=== PATIENT | male | born 1940 | race Caucasian/White ===

== ENCOUNTER 2023-09-02 10:28 | Outpatient (CLI) | payer MEDICARE ==
[2023-09-02 12:39] LABS: Hematocrit 41.2 % (38.8-50.0); Hemoglobin 13.6 g/dL (13.5-17.5); Mean Corpuscular Hemoglobin 31.5 pg (27.0-33.0); Mean Corpuscular Volume 95.4 fl (81.2-95.1); Mean Platelet Volume 10.2 fl (7.4-10.4); Platelet Count 152 10x3/uL (150-450); RBC Distribution Width 13.9 % (11.5-14.5); Red Blood Cell (RBC) Count 4.32 10x6/uL (4.32-5.72)
[2023-09-02 12:40] LABS: PTT 29.4 sec (22.0-33.0); Prothrombin Time 10.3 sec (9.5-12.1)
[2023-09-02 12:53] LABS: Anion Gap 14 mmol/L (10-20); BUN (Urea Nitrogen) 28 mg/dL (8.4-25.7); Calc. Creatinine Clearance 0 mL/min (70-130); Calcium 8.8 mg/dL (7.8-10.44); Carbon Dioxide 28 mmol/L (23-31); Chloride 102 mmol/L (98-107); Estimated GFR 58; Glucose 80 mg/dL (83-110); Potassium 3.7 mmol/L (3.5-5.1); Sodium 140 mmol/L (136-145)
== END 2023-09-02 10:29 | disposition home or self-care (01) ==
LOC: LABBT 10:28
PROVIDERS: ATTEND Urology
DX: Z01.812 Encounter for preprocedural laboratory examination (principal); N32.0 Bladder-neck obstruction
CPT/HCPCS: 80048; 85027; 85610; 85730; 87086

== ENCOUNTER 2023-09-08 11:13 | Inpatient (IN) | payer MEDICARE ==
[2023-09-02 11:04] VITALS: BMI 25.8
[2023-09-08] MEDS ORDERED: LevoFLOXacin D5W 500 mg (100 mL) BAG ONE (13:38)
[2023-09-08] MEDS ORDERED: Phenylephrine 10 MG/ML VIAL ONE (14:40)
[2023-09-08] MEDS ORDERED: PROPOFOL 20 ML ONE (14:43)
[2023-09-08] MEDS ORDERED: fentaNYL PF 100 MCG/2 ML SYRINGE ONE (14:43)
[2023-09-08] MEDS ORDERED: Rocuronium Bromide 10 MG/ML (10ML VIAL) ONE (14:50)
[2023-09-08] MEDS ORDERED: Lidocaine 1% PF 5 ML VIAL ONE (14:50)
[2023-09-08] MEDS ORDERED: Ondansetron PF 4 MG/2 ML Vial ONE (14:50)
[2023-09-08] MEDS ORDERED: ePHEDrine Sulfate 50 MG/10 ML VIAL ONE (15:00)
[2023-09-08] MEDS ORDERED: Dexamethasone 20 MG/5 ML VIAL ONE (15:14)
[2023-09-08] MEDS ORDERED: Promethazine HCl 25 MG/ML VIAL IM PRN (15:44)
[2023-09-08] MEDS ORDERED: Morphine Sulfate 2 MG/ML SYRINGE SLOW IVP PRN (15:44)
[2023-09-08] MEDS ORDERED: Ondansetron HCl/PF 4 MG/2 ML Vial IVP PRN (15:44)
[2023-09-08] MEDS ORDERED: HYDROmorphone 2 MG/ML VIAL SLOW IVP PRN (15:44)
[2023-09-08] MEDS ORDERED: PACU-Morphine 4MG/ML VIAL SLOW IVP PRN (15:44)
[2023-09-08] MEDS ORDERED: NEOSTIGMINE 3 MG/3 ML SYR 3 MG/3 ML SYRINGE ONE (16:21)
[2023-09-08] MEDS ORDERED: Glycopyrrolate 0.2 MG/ML 5 ML SYRINGE ONE (16:21)
[2023-09-08] MEDS ORDERED: Hyoscyamine SL 0.125 MG TAB SL PRN (16:40)
[2023-09-08] MEDS ORDERED: Acetaminophen 500 MG TAB PO PRN (16:40)
[2023-09-08] MEDS ORDERED: Furosemide 20 MG TAB PO PRN (16:43)
[2023-09-08] MEDS: LevoFLOXacin 500 mg/D5W 500 MG in Premix 1 BAG IVPB SCH (18:26)
[2023-09-08] MEDS: D5 1/2 NS w/20 mEq KCL 1,000 ML IV SCH (18:30)
[2023-09-08] MEDS: Ipratropium/Albuterol 3 ML NEB NEB SCH (18:59)
[2023-09-08] MEDS: Mometasone 100 MCG HFA INHALER (RT USE) INH SCH (19:02)
[2023-09-08] MEDS: Gabapentin 300 MG CAP PO SCH (20:38)
[2023-09-08] MEDS: Famotidine 20 MG TAB PO SCH (20:38)
[2023-09-08] MEDS: Atorvastatin Calcium 10 MG TAB PO SCH (20:38)
[2023-09-08] MEDS: Pramipexole Di-HCl 1 MG TAB PO SCH (20:38)
[2023-09-08] MEDS: Finasteride 5 MG TAB PO SCH (20:38)
[2023-09-08] MEDS: Docusate 100 MG CAP PO SCH (20:40)
[2023-09-08] MEDS ORDERED: Acetaminophen 325 MG TAB PO PRN (22:20)
[2023-09-08] MEDS ORDERED: Ondansetron ODT 4 MG TAB PO PRN (22:20)
[2023-09-08] MEDS ORDERED: Acetaminophen 650 MG Suppository PR PRN (22:20)
[2023-09-08] MEDS ORDERED: Ondansetron PF 4 MG/2 ML Vial IVP PRN (22:20)
[2023-09-08 23:22] LABS: ALT (SGPT) 17 U/L (8-55); AST (SGOT) 22 U/L (5-34); Albumin 3.6 g/dL (3.4-4.8); Alkaline Phosphatase 86 U/L (40-110); Anion Gap 9 mmol/L (10-20); BUN (Urea Nitrogen) 24 mg/dL (8.4-25.7); Bilirubin, Total 0.6 mg/dL (0.2-1.2); Calc. Creatinine Clearance 55 mL/min (70-130); Calcium 8.5 mg/dL (7.8-10.44); Carbon Dioxide 27 mmol/L (23-31); Chloride 103 mmol/L (98-107); Estimated GFR 67; Globulin 2.3 g/dL (2.4-3.5); Glucose 271 mg/dL (83-110); Magnesium 1.7 mg/dL (1.6-2.6); Protein, Total 5.9 g/dL (5.8-8.1); Sodium 135 mmol/L (136-145)
[2023-09-08 23:30] LABS: Troponin I Less than 0.010 ng/mL (< 0.028)
[2023-09-09 04:19] LABS: #Monocytes 0.2 thou/uL (0.11-0.59); #Neutrophils 9.4 thou/uL (1.40-6.50); %Basophils 0.1 % (0.0-1.0); %Lymphocytes 2.3 % (21.0-51.0); %Monocytes 2.4 % (0.0-10.0); %Neutrophils 94.7 % (42.0-75.0); Hematocrit 37.8 % (42.0-52.0); Hemoglobin 12.6 g/dL (14.0-18.0); Mean Corpuscular HGB CONC 33.3 g/dL (32.0-36.0); Mean Corpuscular Hemoglobin 31.3 pg (27.0-31.0); Mean Corpuscular Volume 93.8 fl (78.0-98.0); Mean Platelet Volume 9.9 fL (7.4-10.4); Platelet Count 127 10x3/uL (130-400); RBC Distribution Width 13.6 % (11.5-14.5); Red Blood Cell (RBC) Count 4.03 mill/uL (4.70-6.10)
[2023-09-09 04:41] LABS: Anion Gap 10 mmol/L (10-20); BUN (Urea Nitrogen) 24 mg/dL (8.4-25.7); Calc. Creatinine Clearance 55 mL/min (70-130); Calcium 8.3 mg/dL (7.8-10.44); Carbon Dioxide 24 mmol/L (23-31); Chloride 105 mmol/L (98-107); Estimated GFR 67; Glucose 271 mg/dL (83-110); Potassium 4.1 mmol/L (3.5-5.1); Sodium 135 mmol/L (136-145)
[2023-09-09] MEDS: Pantoprazole 40 MG VIAL IVP SCH ×2 (06:12→07:00)
[2023-09-09 06:15] LABS: Hemoglobin A1c 5.4 % (4.0-6.0)
[2023-09-09 06:20] LABS: Cardiac Risk 2.8 (Less than 4.5)
[2023-09-09 06:25] LABS: Troponin I Less than 0.010 ng/mL (< 0.028)
[2023-09-09] MEDS: Magnesium 2 GM/50 ML(in water) 2 GM in Premix 1 BAG IVPB SCH (07:48)
[2023-09-09] MEDS: Losartan 25 MG TAB PO SCH (07:49)
[2023-09-09] MEDS ORDERED: Non-Formulary Item 1 EACH (Fluticasone/Umeclidin/Vilanter [Trelegy Ellipta 100-62.5-25] 1 IH SCH (09:00)
[2023-09-09 22:00] LABS: Troponin I Less than 0.010 ng/mL (< 0.028)
[2023-09-10 16:00] VITALS: BP 122/60; TEMP 97.5
[2023-09-11] MEDS ORDERED: FLU VACC QS2023(65UP)/MF59C/PF 60 MCG/0.5 ML SYRINGE IM ONE (09:00)
== END 2023-09-10 17:52 | disposition home or self-care (01) | DRG 667 ==
LOC: SDC 11:13 → SURG A 18:08 → 2NO 09-09 18:33
PROVIDERS: ADMIT Urology; ATTEND Urology
PROC: 0VT08ZZ Resection of Prostate, Via Natural or Artificial Opening Endoscopic (ICD-10-PCS; principal; 2023-09-08)
DX: N32.0 Bladder-neck obstruction (principal); N40.1 Benign prostatic hyperplasia with lower urinary tract symptoms; I10 Essential (primary) hypertension; R00.1 Bradycardia, unspecified; R07.89 Other chest pain; K21.9 Gastro-esophageal reflux disease without esophagitis; J44.9 Chronic obstructive pulmonary disease, unspecified; Z79.899 Other long term (current) drug therapy
CPT/HCPCS: 36415; 71045; 80048; 80061; 83036; 83735; 84484; 85025; 88305; 93005; 93010; 94640; 94664; C9113; J1100; J1956; J2371; J2405; J2704; J3475; J3480; J7620